=== PATIENT | male | born 1985 | race Caucasian/White ===

== ENCOUNTER 2017-05-15 13:44 | Emergency (ER) | payer MEDICAID ==
[~2017-05-15] VITALS: Ht 182.9 cm; Wt 72.0 kg
[2017-05-15] MEDS ORDERED: POVIDONE-IODINE 10% 15 ML SOLUTION UD TP ONE (14:30)
[2017-05-15] MEDS ORDERED: HYDROCODONE/ACETAMINOPHEN 10-325 MG TABLET PO ONE (14:30)
[2017-05-15] MEDS ORDERED: PERTUSS(ACELL),DIPH,TET VAC/PF 0.5 ML VIAL IM ONE (14:30)
[2017-05-15] MEDS ORDERED: CEPHALEXIN MONOHYDRATE 500 MG CAPSULE PO ONE (16:00)
[2017-05-15 16:42] VITALS: BP 116/64
== END 2017-05-15 16:47 | disposition home or self-care (01) ==
LOC: EMS 13:46 → EDBD 13:46 → EMS 16:47
DX: S81.002A Unspecified open wound, left knee, initial encounter (principal); W01.0XXA Fall on same level from slipping, tripping and stumbling without subsequent striking against object, initial encounter; Y93.51 Activity, roller skating (inline) and skateboarding; Y92.828 Other wilderness area as the place of occurrence of the external cause; Y99.8 Other external cause status
CPT/HCPCS: 29505; 90471; 90715; 99284